=== PATIENT | male | born 1940 | race Caucasian/White ===

== ENCOUNTER → 2018-02-04 | Outpatient (CLI) | payer MEDICARE | END | disposition home or self-care (01) | LOC: PCVCCLINIC 11:25 | DX: I25.10 Atherosclerotic heart disease of native coronary artery without angina pectoris (principal); E11.9 Type 2 diabetes mellitus without complications; J84.10 Pulmonary fibrosis, unspecified; C25.9 Malignant neoplasm of pancreas, unspecified; I71.4 Abdominal aortic aneurysm, without rupture; E78.00 Pure hypercholesterolemia, unspecified; Z88.8 Allergy status to other drugs, medicaments and biological substances; Z79.899 Other long term (current) drug therapy | CPT/HCPCS: 80061; 93005; G0463 ==

== ENCOUNTER → 2018-02-15 | Outpatient (CLI) | payer MEDICARE ==
[~2018-02-15] MED LIST: REGADENOSON 0.4 MG/5 ML DISP.SYRIN. IV ONE
--- NOTE | 2018-02-15 12:30 | PCVCIMAG ---
EXAM: AORTOILIAC DUPLEX INDICATION: Abdominal aortic aneurysm with prior stent graft repair. FINDINGS: AORTA: Suprarenal aorta measures maximum diameter of 2.9 cm. Prior stent graft repair of abdominal aortic aneurysm appears intact without obvious endoleak. Residual aneurysm sac measures maximum diameter of 6.2 x 6.6 cm. No significant aortic stenosis. RIGHT COMMON ILIAC ARTERY: Maximum diameter is 1.9 x 2.4 cm. No significant stenosis. RIGHT EXTERNAL ILIAC ARTERY: No significant stenosis. LEFT COMMON ILIAC ARTERY: Maximum diameter is 2.4 x 2.4 cm. No significant stenosis. LEFT EXTERNAL ILIAC ARTERY: No significant stenosis. IMPRESSION: Intact stent graft repair of abdominal aortic aneurysm by ultrasound criteria. 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 Further evaluation with CTA of the abdomen and pelvis is suggested. LOC:[id number]
--- NOTE | 2018-02-18 11:09 | PCVCIMAG ---
APPROVED REPORT Study performed: 02/15/2018 08:05:35 EXAM: Comprehensive 2D, Doppler, and color-flow Echocardiogram Patient Location: Echo lab Status: routine BSA: 1.89 HR: 78 bpmBP: 114/70 mmHg Other Information Study Quality: Adequate Risk Factors: Cardiac Risk Factors: DM, Hyperlipidemia Indications Dyspnea CAD Pulmonary Fibrosis 2D Dimensions LVEF(%): 55.00 (>50%) IVSd: 11.83 (7-11mm)LVOT Diam: 21.00 (18-24mm) LVDd: 33.75 mm PWd: 11.07 (7-11mm)Ascending Ao: 41.94 (22-36mm) LVDs: 22.28 (25-40mm) Left Atrium: 29.86 (27-40mm) Aortic Root: 29.33 mm LV Single Plane 4CH: 49.62 % LV Single Plane 2CH: 57.24 %Bower's LVEF: 53.43 % Biplane EF: 54.5 % Volumes Left Atrial Volume (Systole) Single Plane 4CH: 29.97 mLSingle Plane 2CH: 43.28 mL LA ESV Index: 21.00 mL/m2 Aortic Valve AoV Peak Ace.: 1.95 m/s AO Peak Gr.: 15.20 mmHgLVOT Max P.74 mmHg AO Mean Gr.: 8.37 mmHgLVOT Mean P.65 mmHg AO V2 Mean: 1.38 m/sLVOT Max V: 0.84 m/s AO V2 VTI: 43.74 cmLVOT Mean V: 0.61 m/s SERG (VTI): 1.62 mk2UBTD V1 VTI: 20.18 cm SERG Vmax: 1.52 cm2 SV (LVOT): 70.97 mL Mitral Valve E/A Ratio: 0.8 MV Decel. Time: 218.35 ms MV E Max Ace.: 0.98 m/s MV A Ace.: 1.27 m/s IVRT: 69.20 ms TDI E/Lateral E': 12.25E/Medial E': 16.33 Medial E' Ace.: 0.06 m/s Lateral E' Ace.: 0.08 m/s Pulmonary Valve PV Peak Ace.: 1.06 m/sPV Peak Gr.: 4.47 mmHg Tricuspid Valve TR Peak Ace.: 2.55 m/sRAP Estimate: 7.00 mmHg TR Peak Gr.: 25.99 mmHg PA Pressure: 33.00 mmHg Left Ventricle The left ventricle is normal size. There is normal LV segmental wall motion. Mild concentric left ventricular hypertrophy. Left ventricular systolic function is normal. The left ventricular ejection fraction is within the normal range. LVEF is 50-55%. Grade I - abnormal relaxation pattern. Right Ventricle The right ventricle is normal size. The right ventricular systolic function is normal. Atria The left atrium size is normal. The right atrium size is normal. Aortic Valve Aortic valve is trileaflet. No aortic regurgitation is present. Mild aortic stenosis. Peak aortic velocity is 15 mmHg and the mean velocity is 8 mmHg. The aortic valve area is 1.5 cm2. Mitral Valve Moderate-heavy posterior mitral annular calcification. Mild mitral regurgitation. No evidence of mitral valve stenosis. Tricuspid Valve The tricuspid valve is normal in structure. Trace tricuspid regurgitation. Pulmonary artery pressure is 33 mmHg. Pulmonic Valve The pulmonary valve is normal in structure. There is no pulmonic valvular regurgitation. Great Vessels The aortic root is normal in size. Ascending aorta is mildly dilated at 4.2 cm. IVC is normal in size and collapses >50% with inspiration. Pericardium There is no pericardial effusion. <Conclusion> The left ventricle is normal size. LVEF is 50-55%. Grade I - abnormal relaxation pattern. The right ventricle is normal size. The left atrium size is normal. Aortic valve is trileaflet. Mild aortic stenosis. Peak aortic velocity is 15 mmHg and the mean velocity is 8 mmHg. The aortic valve area is 1.5 cm2. Mild mitral regurgitation. Trace tricuspid regurgitation. Pulmonary artery pressure is 33 mmHg. The aortic root is normal in size. There is no pericardial effusion.
--- NOTE | 2018-02-18 11:15 | PCVCIMAG ---
APPROVED REPORT Imaging Protocol: Rest Tc-99m/Stress Tc-99m 1 day Study performed: 02/15/2018 09:31:06 Indication: CAD Patient Location: Out-Patient Stress Nurse: Zahra Kebede RN [place] Tech:HESHAM Daniel Ht: 5 ft 7 in Wt: 167 lbs BSA: 1.87 m2 HR: 59 bpm BP: 148/70 mmHg BMI: 26.1 Medical History Medications: O2, janumet, pravastatin Allergies: Codeine, Oxycontin Cardiac Risk Factors: Age, Hyperlipidemia, DM, PVD, AAA S/P REPAIR, COPD, Malignant Neoplasm of Pancreas Pretest Chest Pain Characteristics: No chest pain Resting Data Rest SPECT myocardial perfusion imaging was performed in supine position 45 minutes following the intravenous injection of 11.1 mCi of Tc-99m Sestamibi. Time of rest injection: 929 Date: 02/15/2018 Administration Route: IV Administration Site: Right AC Pharmacologic Stress Pharmacologic stress test was performed by injecting Regadenoson 0.4 mg IV push over 10-15 seconds immediately followed by the intravenous injection of 34.3 mCi of Tc-99m Sestamibi. Time of stress injection: 1055 Date: 02/15/2018 Administration Route: IV Administration Site: Right AC Gated Stress SPECT was performed 45 minutes after stress injection. The images were gated to evaluate regional wall motion and calculate left ventricular ejection fraction. Comments PRIOR NUC 01/12: Perfusion Imaging: No evidence of stress induced ischemia or prior myocardial infarction. Normal left ventricular size and function with no regional wall motion abnormalities. No change since prior study dated 2010. Clinical findings: Nonischemic. EKG findings: Nonischemic. Stress Test Details Stress Test: Pharmacologic stress testing performed using 0.4 mg of regadenoson per 5 mL given IV over 10 seconds. Reason for pharmacologic stress test: physical limitation. HRMax Heart Rate (APMHR): 141 bpm Resting HR: 59 bpmTarget HR (85% APMHR): 119 bpm Max HR Achieved: 79 bpm % of APMHR: 56 Recovery HR: 73 bpm BP Resting BP: 148/70 mmHg Recovery BP: 114/71 mmHg ECG Resting ECG: SB with PACs Stress ECG: SR, Sinus Rhythm, nonspecific ST-T abnormalities Arrhythmia: PACs Recovery ECG: SR Clinical Reason for Termination: Completed protocol Stress Symptoms: Dyspnea Exercise duration: 0 min 55 sec Scale: Active Symptoms resolved with caffeine. Stress ECG Conclusion ECG: Non-ischemic Study Quality Study: Good Study Data Post stress, the left ventricular ejection was 68%.. SSS: 2 SRS: 5 SDS: 0 TID = 0.87. Perfusion No evidence of stress induced ischemia or prior myocardial infarction. Wall Motion Normal left ventricular size and function with no regional wall motion abnormalities. Nuclear Conclusion No evidence of stress induced ischemia or prior myocardial infarction. Normal left ventricular size and function with no regional wall motion abnormalities. Post stress, the left ventricular ejection was 68%. No change since prior study dated December 2013. Interpreted by: Norris Small MD Electronically Approved: 02/15/2018 12:44:10 <Conclusion> ECG: Non-ischemic
== END | disposition home or self-care (01) ==
LOC: PCVCIMAG 13:52
PROVIDERS: ATTEND Internal Medicine Cardiovascular Disease
DX: I71.4 Abdominal aortic aneurysm, without rupture (principal)
CPT/HCPCS: 78452; 93017; 93306; 93978; A9500; J2785

== ENCOUNTER → 2018-11-04 | Outpatient (CLI) | payer MEDICARE | END | disposition home or self-care (01) | LOC: PCVCCLINIC 15:00 | PROVIDERS: ATTEND Internal Medicine Cardiovascular Disease | DX: I25.10 Atherosclerotic heart disease of native coronary artery without angina pectoris (principal); E78.00 Pure hypercholesterolemia, unspecified; J44.9 Chronic obstructive pulmonary disease, unspecified; C25.9 Malignant neoplasm of pancreas, unspecified; E11.9 Type 2 diabetes mellitus without complications; I71.4 Abdominal aortic aneurysm, without rupture; I35.0 Nonrheumatic aortic (valve) stenosis; Z79.899 Other long term (current) drug therapy | CPT/HCPCS: 36415; 80061; 93005; G0463 ==